=== PATIENT | male | born 1960 | race Caucasian/White ===

== ENCOUNTER 2018-04-01 12:15 | Inpatient (IN) | payer BC ==
[2018-04-01] MEDS ORDERED: IODIXANOL 320 MG/ML 100 ML VIAL. (13:38)
[2018-04-01] MEDS ORDERED: LIDOCAINE 2% 20 ML VIAL. (13:38)
[2018-04-01] MEDS ORDERED: VERAPAMIL 5 MG/2 ML VIAL. (13:59)
[2018-04-01] MEDS ORDERED: fentaNYL PF VIAL 100 MCG/2 ML VIAL (13:59)
[2018-04-01] MEDS ORDERED: MIDAZOLAM HCL/PF 2 MG/2 ML VIAL. ×2 (13:59→14:51)
[2018-04-01] MEDS ORDERED: HEPARIN for IV BOLUS 10,000 UNIT/10 ML VIAL. (13:59)
[2018-04-01] MEDS ORDERED: NITROGLYCERIN 200 MCG/2 ML SYRINGE FOR CATH/VASC LAB. (14:00)
[2018-04-01] MEDS ORDERED: IOHEXOL 300 MG/ML 100ML VIAL. (14:57)
[2018-04-01] MEDS: fentaNYL PF VIAL 100 MCG/2 ML VIAL IV (15:07)
[2018-04-01] MEDS: NITROGLYCERIN 200 MCG/2 ML SYRINGE FOR CATH/VASC LAB. IART (15:08)
[2018-04-01] MEDS: LIDOCAINE 2% 20 ML VIAL. IJ (15:08)
[2018-04-01] MEDS: VERAPAMIL 5 MG/2 ML VIAL. IART (15:09)
[2018-04-01] MEDS: MIDAZOLAM HCL/PF 2 MG/2 ML VIAL. IV (15:10)
[2018-04-01] MEDS: IODIXANOL 320 MG/ML 100 ML VIAL. IART (15:12)
[2018-04-01] MEDS: HEPARIN for IV BOLUS 10,000 UNIT/10 ML VIAL. IART (15:14)
[2018-04-01] MEDS: HEPARIN for IV BOLUS 10,000 UNIT/10 ML VIAL. IV (15:14)
[2018-04-01] MEDS: IV 1/2 NORMAL SALINE 1,000 ML IV (16:08)
[2018-04-01 16:44] LABS: POC GLUCOSE 144 mg/dL (70-99)
[2018-04-01] MEDS ORDERED: METOPROLOL TART IMMED RELEASE 25 MG TABLET. PO (21:00)
[2018-04-01] MEDS ORDERED: ATORVASTATIN CALCIUM 20 MG TABLET PO (21:00)
[2018-04-02] MEDS ORDERED: ASPIRIN ENTERIC COATED 81 MG TABLET.DR. PO (08:00)
[2018-04-02] MEDS ORDERED: ISOSORBIDE MONONITRATE ER 30 MG TAB.ER.24H PO (09:00)
== END 2018-04-01 19:11 | disposition home or self-care (01) | DRG 287 ==
LOC: 2 SOUTH 12:15
PROVIDERS: Internal Medicine
PROC: B2111ZZ Fluoroscopy of Multiple Coronary Arteries using Low Osmolar Contrast (ICD-10-PCS; principal; 2018-04-01)
PROC: B2151ZZ Fluoroscopy of Left Heart using Low Osmolar Contrast (ICD-10-PCS; 2018-04-01)
PROC: 4A023N7 Measurement of Cardiac Sampling and Pressure, Left Heart, Percutaneous Approach (ICD-10-PCS; 2018-04-01)
DX: I25.10 Atherosclerotic heart disease of native coronary artery without angina pectoris (principal); R07.9 Chest pain, unspecified; I25.82 Chronic total occlusion of coronary artery
CPT/HCPCS: 82962; 93458; 99152; 99153; C1769; C1887; C1892; J1644; J2001; J2250; J3010; J3490